=== PATIENT | female | born 1990 | race American Indian/Alaskan Native ===

== ENCOUNTER 2020-12-02 21:32 | Emergency (ER) | payer SELFPAY ==
[2020-12-02 21:52] VITALS: BP 114/57
[2020-12-02] MEDS ORDERED: oxyCODONE /ACETAMINOPHEN 5-325MG TAB PO ONE (22:17)
--- NOTE | 2020-12-02 22:24 | Emergency Department Report ---
ED ENT HPI - General Chief complaint: Dental/Oral Stated complaint: TOOTH ACHE Time Seen by Provider: 12/02/20 22:15 Source: patient Mode of arrival: Ambulatory Limitations: No Limitations - History of Present Illness MD complaint: tooth pain -: Gradual Location: tooth # 1 - Area pain severe erosion dental caries and adjacent gingival erythema Severity: moderate, severe Quality: dull Consistency: constant Improves with: none Worsens with: none Associated Symptoms: toothache - Related Data Previous Rx's Medication Instructions Recorded Last Taken Type Cyclobenzaprine [Flexeril] 10 mg PO TID PRN #15 tablet 10/11/15 Unknown Rx Naproxen [Naprosyn] 500 mg PO BID #20 tablet 10/11/15 Unknown Rx Acetaminophen/Codeine [Tylenol #3] 1 tab PO Q6H PRN #14 tab 04/13/16 Unknown Rx Ibuprofen [Motrin] 800 mg PO Q8HR PRN #20 tablet 04/13/16 Unknown Rx Amoxicillin [Amoxicillin TAB] 875 mg PO BID #20 tablet 12/02/20 Unknown Rx Chlorhexidine Mouthwash [Peridex] 15 ml MM BID #1 bottle 12/02/20 Unknown Rx Ketorolac [Toradol] 10 mg PO Q6H PRN #15 tablet 12/02/20 Unknown Rx Lidocaine Viscous 2% 5 ml MM Q3H PRN #120 udc 12/02/20 Unknown Rx Allergies Allergy/AdvReac Type Severity Reaction Status Date / Time No Known Allergies Allergy Verified 10/11/15 11:40 ED Dental HPI - General Chief complaint: Dental/Oral Stated complaint: TOOTH ACHE Time Seen by Provider: 12/02/20 22:15 Source: patient Mode of arrival: Ambulatory Limitations: No Limitations - Related Data Previous Rx's Medication Instructions Recorded Last Taken Type Cyclobenzaprine [Flexeril] 10 mg PO TID PRN #15 tablet 10/11/15 Unknown Rx Naproxen [Naprosyn] 500 mg PO BID #20 tablet 10/11/15 Unknown Rx Acetaminophen/Codeine [Tylenol #3] 1 tab PO Q6H PRN #14 tab 04/13/16 Unknown Rx Ibuprofen [Motrin] 800 mg PO Q8HR PRN #20 tablet 04/13/16 Unknown Rx Amoxicillin [Amoxicillin TAB] 875 mg PO BID #20 tablet 12/02/20 Unknown Rx Chlorhexidine Mouthwash [Peridex] 15 ml MM BID #1 bottle 12/02/20 Unknown Rx Ketorolac [Toradol] 10 mg PO Q6H PRN #15 tablet 12/02/20 Unknown Rx Lidocaine Viscous 2% 5 ml MM Q3H PRN #120 udc 12/02/20 Unknown Rx Allergies Allergy/AdvReac Type Severity Reaction Status Date / Time No Known Allergies Allergy Verified 10/11/15 11:40 ED Review of Systems ROS: Stated complaint: TOOTH ACHE Other details as noted in HPI Comment: All other systems reviewed and negative ED Past Medical Hx - Past Medical History Previous Medical History?: No - Surgical History Past Surgical History?: No - Social History Smoking Status: Never Smoker Substance Use Type: None - Medications Home Medications: Home Medications Medication Instructions Recorded Confirmed Last Taken Type Cyclobenzaprine [Flexeril] 10 mg PO TID PRN #15 tablet 10/11/15 Unknown Rx Naproxen [Naprosyn] 500 mg PO BID #20 tablet 10/11/15 Unknown Rx Acetaminophen/Codeine [Tylenol #3] 1 tab PO Q6H PRN #14 tab 04/13/16 Unknown Rx Ibuprofen [Motrin] 800 mg PO Q8HR PRN #20 tablet 04/13/16 Unknown Rx Amoxicillin [Amoxicillin TAB] 875 mg PO BID #20 tablet 12/02/20 Unknown Rx Chlorhexidine Mouthwash [Peridex] 15 ml MM BID #1 bottle 12/02/20 Unknown Rx Ketorolac [Toradol] 10 mg PO Q6H PRN #15 tablet 12/02/20 Unknown Rx Lidocaine Viscous 2% 5 ml MM Q3H PRN #120 udc 12/02/20 Unknown Rx ED Physical Exam - General Limitations: No Limitations General appearance: alert, in no apparent distress - Head Head exam: Present: atraumatic, normocephalic - Eye Eye exam: Present: normal appearance - ENT ENT exam: Present: normal orophraynx (Airway patent tongue uvula midline no exudate no erythema), mucous membranes moist, other (Painful swelling and erosion to the teeth #2019. Adjacent gingival erythema with some swelling) - Neck Neck exam: Present: normal inspection - Respiratory Respiratory exam: Present: normal lung sounds bilaterally. Absent: respiratory distress - Cardiovascular Cardiovascular Exam: Present: regular rate, normal rhythm. Absent: systolic murmur, diastolic murmur, rubs, gallop - GI/Abdominal GI/Abdominal exam: Present: soft, normal bowel sounds - Extremities Exam Extremities exam: Present: normal inspection, full ROM, normal capillary refill - Back Exam Back exam: Present: normal inspection. Absent: CVA tenderness (R), CVA ten derness (L) - Neurological Exam Neurological exam: Present: alert, oriented X3, CN II-XII intact, normal gait - Psychiatric Psychiatric exam: Present: normal affect, normal mood - Skin Skin exam: Present: warm, dry, intact, normal color. Absent: rash ED Course Vital Signs 12/02/20 21:51 Temperature 98.6 F Pulse Rate 81 Respiratory 18 Rate Blood Pressure 114/57 O2 Sat by Pulse 94 Oximetry Critical care attestation.: If time is entered above; I have spent that time in minutes in the direct care of this critically ill patient, excluding procedure time. ED Disposition Clinical Impression: Dentalgia Disposition: DC-01 TO HOME OR SELFCARE Is pt being admited?: No Does the pt Need Aspirin: No Condition: Stable Prescriptions: Amoxicillin [Amoxicillin TAB] 875 mg PO BID #20 tablet Lidocaine Viscous 2% 5 ml MM Q3H PRN #120 udc PRN Reason: Pain, Moderate (4-6) Chlorhexidine Mouthwash [Peridex] 15 ml MM BID #1 bottle Ketorolac [Toradol] 10 mg PO Q6H PRN #15 tablet PRN Reason: Pain Referrals: PRIMARY CARE,MD [Primary Care Provider] - 3-5 Days [facility] [Outside] - 3-5 Days
== END 2020-12-02 22:41 | disposition home or self-care (01) ==
LOC: ED 21:32
DX: K08.89 Other specified disorders of teeth and supporting structures (principal); Z79.899 Other long term (current) drug therapy
CPT/HCPCS: 99282

== ENCOUNTER 2021-02-07 23:41 | Emergency (ER) | payer SELFPAY ==
[2021-02-08 00:50] VITALS: BP 132/86
--- NOTE | 2021-02-08 01:02 | Emergency Department Report ---
ED General Adult HPI - General Chief complaint: Skin/Abscess/Foreign Body Stated complaint: OPEN UPPER LFT SIDE BOIL Source: patient Mode of arrival: Ambulatory Limitations: No Limitations - History of Present Illness Initial comments: Patient is a 30-year-old -Martiniquais female with no past medical history who presents to the ED with complaint of acute onset persistent painful left lateral breast abscess wound for the last 3 days with thick purulent discharge. Patient states that the pain is moderate but the area around the wound is quite itchy. Patient denies traumatic injury, fever, chills, nausea, vomiting, chest pain or shortness of breath and neck pain. MD Complaint: left lateral breast open abscess wound with discharge and pain -: Sudden, days(s) (3) Location: chest (Left lateral breast) Radiation: non-radiation Severity scale (0 -10): 3 Quality: aching, dull Consistency: constant Improves with: none Worsens with: none Associated Symptoms: denies other symptoms, rash (Painful left lateral breast open abscess wound with thick purulent discharge). denies: confusion, chest pain, cough, fever/chills, headaches, loss of appetite, malaise, nausea/vomiting, seizure, shortness of breath, syncope, weakness Treatments Prior to Arrival: none - Related Data Previous Rx's Medication Instructions Recorded Last Taken Type Cyclobenzaprine [Flexeril] 10 mg PO TID PRN #15 tablet 10/11/15 Unknown Rx Naproxen [Naprosyn] 500 mg PO BID #20 tablet 10/11/15 Unknown Rx Acetaminophen/Codeine [Tylenol #3] 1 tab PO Q6H PRN #14 tab 04/13/16 Unknown Rx Ibuprofen [Motrin] 800 mg PO Q8HR PRN #20 tablet 04/13/16 Unknown Rx Amoxicillin [Amoxicillin TAB] 875 mg PO BID #20 tablet 12/02/20 Unknown Rx Chlorhexidine Mouthwash [Peridex] 15 ml MM BID #1 bottle 12/02/20 Unknown Rx Ketorolac [Toradol] 10 mg PO Q6H PRN #15 tablet 12/02/20 Unknown Rx Lidocaine Viscous 2% 5 ml MM Q3H PRN #120 udc 12/02/20 Unknown Rx Clindamycin [Clindamycin CAP] 300 mg PO Q8H #30 cap 02/08/21 Unknown Rx Ibuprofen [Motrin] 800 mg PO Q8HR PRN #30 tablet 02/08/21 Unknown Rx Sulfamethoxazole/Trimethoprim 1 each PO Q12H #20 tablet 02/08/21 Unknown Rx [Bactrim DS TAB] Allergies Allergy/AdvReac Type Severity Reaction Status Date / Time No Known Allergies Allergy Verified 10/11/15 11:40 ED Review of Systems ROS: Stated complaint: OPEN UPPER LFT SIDE BOIL Other details as noted in HPI Constitutional: denies: chills, fever Eyes: denies: eye pain, eye discharge, vision change ENT: denies: ear pain, throat pain Respiratory: denies: cough, shortness of breath, wheezing Cardiovascular: denies: chest pain, palpitations Endocrine: no symptoms reported Gastrointestinal: denies: abdominal pain, nausea, diarrhea Genitourinary: denies: urgency, dysuria, discharge Musculoskeletal: denies: back pain, joint swelling, arthralgia Skin: rash (Palpable mild tenderness on left lateral breast area around an open ulcerated wound with moderate thick purulent discharge). denies: lesions, change in color, change in hair/nails Neurological: denies: headache, weakness, paresthesias Psychiatric: denies: anxiety, depression Hematological/Lymphatic: denies: easy bleeding, easy bruising ED Past Medical Hx - Social History Smoking Status: Never Smoker Substance Use Type: None - Medications Home Medications: Home Medications Medication Instructions Recorded Confirmed Last Taken Type Cyclobenzaprine [Flexeril] 10 mg PO TID PRN #15 tablet 10/11/15 Unknown Rx Naproxen [Naprosyn] 500 mg PO BID #20 tablet 10/11/15 Unknown Rx Acetaminophen/Codeine [Tylenol #3] 1 tab PO Q6H PRN #14 tab 04/13/16 Unknown Rx Ibuprofen [Motrin] 800 mg PO Q8HR PRN #20 tablet 04/13/16 Unknown Rx Amoxicillin [Amoxicillin TAB] 875 mg PO BID #20 tablet 12/02/20 Unknown Rx Chlorhexidine Mouthwash [Peridex] 15 ml MM BID #1 bottle 12/02/20 Unknown Rx Ketorolac [Toradol] 10 mg PO Q6H PRN #15 tablet 12/02/20 Unknown Rx Lidocaine Viscous 2% 5 ml MM Q3H PRN #120 udc 12/02/20 Unknown Rx Clindamycin [Clindamycin CAP] 300 mg PO Q8H #30 cap 02/08/21 Unknown Rx Ibuprofen [Motrin] 800 mg PO Q8HR PRN #30 tablet 02/08/21 Unknown Rx Sulfamethoxazole/Trimethoprim 1 each PO Q12H #20 tablet 02/08/21 Unknown Rx [Bactrim DS TAB] ED Physical Exam - General Limitations: No Limitations General appearance: alert, in no apparent distress - Head Head exam: Present: atraumatic, normocephalic, normal inspection - Eye Eye exam: Present: normal appearance, PERRL, EOMI Pupils: Present: normal accommodation - ENT ENT exam: Present: normal exam, normal orophraynx, mucous membranes moist, TM's normal bilaterally, normal external ear exam - Neck Neck exam: Present: normal inspection, full ROM - Respiratory Respiratory exam: Present: normal lung sounds bilaterally. Absent: respiratory distress, wheezes, rales, rhonchi, stridor, chest wall tenderness, accessory muscle use, decreased breath sounds - Cardiovascular Cardiovascular Exam: Present: regular rate, normal rhythm, normal heart sounds. Absent: systolic murmur, diastolic murmur, rubs, gallop - GI/Abdominal GI/Abdominal exam: Present: soft, normal bowel sounds. Absent: tenderness, guarding, rebound, hyperactive bowel sounds, hypoactive bowel sounds, organomegaly - Extremities Exam Extremities exam: Present: normal inspection, full ROM, normal capillary refill. Absent: tenderness, calf tenderness - Back Exam Back exam: Present: normal inspection, full ROM. Absent: tenderness, CVA tenderness (R), CVA tenderness (L), muscle spasm, paraspinal tenderness, vertebral tenderness - Neurological Exam Neurological exam: Present: alert, oriented X3, CN II-XII intact, normal gait, reflexes normal - Psychiatric Psychiatric exam: Present: normal affect, normal mood - Skin Skin exam: Present: warm, dry, intact, normal color, rash (Mildly ulcerated open abscess wound on left lateral breast wall with moderate thick purulent discharge) ED Course Vital Signs 02/08/21 00:47 Temperature 98.1 F Pulse Rate 82 Respiratory 16 Rate Blood Pressure 132/86 [Left] O2 Sat by Pulse 97 Oximetry ED Medical Decision Making - Medical Decision Making This is a 30-year-old -Martiniquais female with no past medical history who presents to the ED with complaint of acute onset persistent painful left lateral breast abscess wound for the last 3 days with thick purulent discharge. Patient states that the pain is moderate but the area around the wound is quite itchy. In the ED, patient is alert and oriented x3 and is not in any distress. The wound on the left lateral breast was cleaned aseptically and dressed appropriately. Patient was discharged home on medications including oral antibiotics and advised to follow-up with her primary care physician in 5 to 7 days for reevaluation. Patient was advised return to the ED immediately if symptoms get worse. - Differential Diagnosis Cutaneous abscess; cellulitis; folliculitis; Critical care attestation.: If time is entered above; I have spent that time in minutes in the direct care of this critically ill patient, excluding procedure time. ED Disposition Clinical Impression: Abscess of skin of breast, Cellulitis of left breast Disposition: HOME / SELF CARE / HOMELESS Is pt being admited?: No Does the pt Need Aspirin: No Condition: Stable Instructions: Cellulitis, Adult, [id number], Skin Abscess, [id number] Additional Instructions: Take medication with food, drink plenty of fluids and follow-up with your primary care physician in 5 to 7 days for reevaluation. Return to the ED immediately if symptoms get worse. No alcohol consumption advised when taking these antibiotics. Prescriptions: Sulfamethoxazole/Trimethoprim [Bactrim DS TAB] 1 each PO Q12H #20 tablet Clindamycin [Clindamycin CAP] 300 mg PO Q8H #30 cap Ibuprofen [Motrin] 800 mg PO Q8HR PRN #30 tablet PRN Reason: Pain , Severe (7-10) Referrals: [facility] [Provider Group] - 3-5 Days Time of Disposition: :03 Print Language: SWEDISH
== END 2021-02-08 02:02 | disposition home or self-care (01) ==
LOC: ED 23:41
DX: N61.1 Abscess of the breast and nipple (principal); N61.0 Mastitis without abscess
CPT/HCPCS: 99281; 99282

== ENCOUNTER 2021-07-26 14:09 | Emergency (ER) | payer SELFPAY ==
--- NOTE | 2021-07-26 15:33 | Emergency Department Report ---
ED ENT HPI - General Chief complaint: Dental/Oral Stated complaint: TOOTHACHE/FEVER SWOLLEN GUMS Source: patient Mode of arrival: Ambulatory Limitations: No Limitations - History of Present Illness Initial comments: 30-year-old female presents to the ED with tooth ache x2 days. Patient states that she do not have a dentist at present time. Patient states that she has multiple cavities. Patient states taking [id number] pain medication without any relief. patient denies any past medical history. Patient is alert and oriented x3. Patient denies any difficult swallowing, drooling, earache or headache. Denies any fever or chills. Denies any recent surgery. No acute distress noted. No ill appearance noted. No obvious swelling noted to the left jaw area. MD complaint: tooth pain Onset/Timin -: days(s) Severity scale (0 -10): 8 Quality: aching Consistency: constant Improves with: none Worsens with: none Context- Dental: history of dental caries, poor dental care - Related Data Previous Rx's Medication Instructions Recorded Last Taken Type Cyclobenzaprine [Flexeril] 10 mg PO TID PRN #15 tablet 10/11/15 Unknown Rx Naproxen [Naprosyn] 500 mg PO BID #20 tablet 10/11/15 Unknown Rx Acetaminophen/Codeine [Tylenol #3] 1 tab PO Q6H PRN #14 tab 04/13/16 Unknown Rx Ibuprofen [Motrin] 800 mg PO Q8HR PRN #20 tablet 04/13/16 Unknown Rx Amoxicillin [Amoxicillin TAB] 875 mg PO BID #20 tablet 12/02/20 Unknown Rx Chlorhexidine Mouthwash [Peridex] 15 ml MM BID #1 bottle 12/02/20 Unknown Rx Ketorolac [Toradol] 10 mg PO Q6H PRN #15 tablet 12/02/20 Unknown Rx Lidocaine Viscous 2% 5 ml MM Q3H PRN #120 udc 12/02/20 Unknown Rx Clindamycin [Clindamycin CAP] 300 mg PO Q8H #30 cap 02/08/21 Unknown Rx Ibuprofen [Motrin] 800 mg PO Q8HR PRN #30 tablet 02/08/21 Unknown Rx Sulfamethoxazole/Trimethoprim 1 each PO Q12H #20 tablet 02/08/21 Unknown Rx [Bactrim DS TAB] Acetaminophen/Codeine [Tylenol 1 tab PO Q6H PRN #12 tab 07/26/21 Unknown Rx /Codeine # 3 tab] Penicillin V Potassium 500 mg PO BID 10 Days #20 tab 07/26/21 Unknown Rx Allergies Allergy/AdvReac Type Severity Reaction Status Date / Time No Known Allergies Allergy Verified 10/11/15 11:40 ED Dental HPI - General Chief complaint: Dental/Oral Stated complaint: TOOTHACHE/FEVER SWOLLEN GUMS Source: patient Mode of arrival: Ambulatory Limitations: No Limitations - Related Data Previous Rx's Medication Instructions Recorded Last Taken Type Cyclobenzaprine [Flexeril] 10 mg PO TID PRN #15 tablet 10/11/15 Unknown Rx Naproxen [Naprosyn] 500 mg PO BID #20 tablet 10/11/15 Unknown Rx Acetaminophen/Codeine [Tylenol #3] 1 tab PO Q6H PRN #14 tab 04/13/16 Unknown Rx Ibuprofen [Motrin] 800 mg PO Q8HR PRN #20 tablet 04/13/16 Unknown Rx Amoxicillin [Amoxicillin TAB] 875 mg PO BID #20 tablet 12/02/20 Unknown Rx Chlorhexidine Mouthwash [Peridex] 15 ml MM BID #1 bottle 12/02/20 Unknown Rx Ketorolac [Toradol] 10 mg PO Q6H PRN #15 tablet 12/02/20 Unknown Rx Lidocaine Viscous 2% 5 ml MM Q3H PRN #120 udc 12/02/20 Unknown Rx Clindamycin [Clindamycin CAP] 300 mg PO Q8H #30 cap 02/08/21 Unknown Rx Ibuprofen [Motrin] 800 mg PO Q8HR PRN #30 tablet 02/08/21 Unknown Rx Sulfamethoxazole/Trimethoprim 1 each PO Q12H #20 tablet 02/08/21 Unknown Rx [Bactrim DS TAB] Acetaminophen/Codeine [Tylenol 1 tab PO Q6H PRN #12 tab 07/26/21 Unknown Rx /Codeine # 3 tab] Penicillin V Potassium 500 mg PO BID 10 Days #20 tab 07/26/21 Unknown Rx Allergies Allergy/AdvReac Type Severity Reaction Status Date / Time No Known Allergies Allergy Verified 10/11/15 11:40 ED Review of Systems ROS: Stated complaint: TOOTHACHE/FEVER SWOLLEN GUMS Other details as noted in HPI Constitutional: denies: chills, fever Eyes: denies: eye pain, eye discharge, vision change ENT: dental pain. denies: ear pain, throat pain Respiratory: denies: cough, shortness of breath, wheezing Cardiovascular: denies: chest pain, palpitations Endocrine: no symptoms reported Gastrointestinal: denies: abdominal pain, nausea, diarrhea Genitourinary: denies: urgency, dysuria, discharge Musculoskeletal: denies: back pain, joint swelling, arthralgia Skin: denies: rash, lesions Neurological: denies: headache, weakness, paresthesias Psychiatric: denies: anxiety, depression Hematological/Lymphatic: denies: easy bleeding, easy bruising ED Past Medical Hx - Social History Smoking Status: Never Smoker Substance Use Type: None - Medications Home Medications: Home Medications Medication Instructions Recorded Confirmed Last Taken Type Cyclobenzaprine [Flexeril] 10 mg PO TID PRN #15 tablet 10/11/15 Unknown Rx Naproxen [Naprosyn] 500 mg PO BID #20 tablet 10/11/15 Unknown Rx Acetaminophen/Codeine [Tylenol #3] 1 tab PO Q6H PRN #14 tab 04/13/16 Unknown Rx Ibuprofen [Motrin] 800 mg PO Q8HR PRN #20 tablet 04/13/16 Unknown Rx Amoxicillin [Amoxicillin TAB] 875 mg PO BID #20 tablet 12/02/20 Unknown Rx Chlorhexidine Mouthwash [Peridex] 15 ml MM BID #1 bottle 12/02/20 Unknown Rx Ketorolac [Toradol] 10 mg PO Q6H PRN #15 tablet 12/02/20 Unknown Rx Lidocaine Viscous 2% 5 ml MM Q3H PRN #120 udc 12/02/20 Unknown Rx Clindamycin [Clindamycin CAP] 300 mg PO Q8H #30 cap 02/08/21 Unknown Rx Ibuprofen [Motrin] 800 mg PO Q8HR PRN #30 tablet 02/08/21 Unknown Rx Sulfamethoxazole/Trimethoprim 1 each PO Q12H #20 tablet 02/08/21 Unknown Rx [Bactrim DS TAB] Acetaminophen/Codeine [Tylenol 1 tab PO Q6H PRN #12 tab 07/26/21 Unknown Rx /Codeine # 3 tab] Penicillin V Potassium 500 mg PO BID 10 Days #20 tab 07/26/21 Unknown Rx ED Physical Exam - General Limitations: No Limitations General appearance: alert, in no apparent distress - Head Head exam: Present: atraumatic, normocephalic - Eye Eye exam: Present: normal appearance - ENT ENT exam: Present: mucous membranes moist - Expanded ENT Exam Expanded Mouth exam: Absent: drooling, trismus, muffled voice Teeth exam: Present: dental caries, other (multiple missing teeth ) - Neck Neck exam: Present: normal inspection - Respiratory Respiratory exam: Present: normal lung sounds bilaterally. Absent: respiratory distress - Cardiovascular Cardiovascular Exam: Present: regular rate, normal rhythm. Absent: systolic murmur, diastolic murmur, rubs, gallop - GI/Abdominal GI/Abdominal exam: Present: soft, normal bowel sounds - Extremities Exam Extremities exam: Present: normal inspection - Back Exam Back exam: Present: normal inspection - Neurological Exam Neurological exam: Present: alert, oriented X3 - Psychiatric Psychiatric exam: Present: normal affect, normal mood - Skin Skin exam: Present: warm, dry, intact, normal color. Absent: rash ED Course Vital Signs 07/26/21 14:44 Temperature 98.3 F Pulse Rate 74 Respiratory 16 Rate Blood Pressure 145/101 O2 Sat by Pulse 99 Oximetry ED Medical Decision Making - Medical Decision Making 30-year-old female presents to the ED with tooth ache x2 days. Patient states that she do not have a dentist at present time. Patient states that she has multiple cavities. Patient states taking [id number] pain medication without any relief. patient denies any past medical history. Patient is alert and oriented x3. Patient denies any difficult swallowing, drooling, earache or headache. Denies any fever or chills. Denies any recent surgery. No acute distress noted. No ill appearance noted. No obvious swelling noted to the left jaw area. Physical examination show multiple dental caries with mild edema noted to tooth #1, multiple missing teeth. Patient to follow-up with dentist. Discussed patient plan about blood pressure pressure reading and to follow-up with primary care doctor. Rechecked the patient is resting quietly quietly and comfortable and feeling better. I discussed the results of diagnostic study, my clinical impression and the plan for further treatment with the patient. Patient agrees with plan and discharge at this present time. All question addressed. I have given the patient instruction regarding a diagnosis ,expectation ,follow- up and return precaution. I explained to the patient that emergent condition may arise and to return to the ED for new worsen and any new persisting condition. I have explained the importance of following up with the primary care physician or referral physician listed below has instructed. The patient verbalized understanding of discharge instruction. Critical care attestation.: If time is entered above; I have spent that time in minutes in the direct care of this critically ill patient, excluding procedure time. ED Disposition Clinical Impression: Pain due to dental caries Disposition: HOME / SELF CARE / HOMELESS Is pt being admited?: No Does the pt Need Aspirin: No Condition: Stable Instructions: Preventive Dental Care, Adult, Dental Abscess, [id number], Hypertension, Adult, [id number] Additional Instructions: Return the ED for any worsening symptom Take medication as prescribed Prescriptions: Penicillin V Potassium 500 mg PO BID 10 Days #20 tab Acetaminophen/Codeine [Tylenol /Codeine # 3 tab] 1 tab PO Q6H PRN #12 tab PRN Reason: Pain, Moderate (4-6) Referrals: [facility] [Outside] - 3-5 Days Forms: Work/School Release Form(ED)
[2021-07-26 16:06] VITALS: BP 150/96
== END 2021-07-26 16:04 | disposition home or self-care (01) ==
LOC: ED 14:09
DX: K02.9 Dental caries, unspecified (principal)
CPT/HCPCS: 99282

== ENCOUNTER 2021-09-22 13:01 | Emergency (ER) | payer SELFPAY ==
[2021-09-22] MEDS ORDERED: KETOROLAC 10 MG TAB PO ONE (15:31)
[2021-09-22] MEDS ORDERED: DOXYCYCLINE 100 MG CAP PO ONE (15:31)
[2021-09-22] MEDS ORDERED: oxyCODONE /ACETAMINOPHEN 5-325MG TAB PO ONE (15:31)
--- NOTE | 2021-09-22 15:38 | Emergency Department Report ---
- General Chief complaint: Skin/Abscess/Foreign Body Stated complaint: BOIL UNDER BREAST Time Seen by Provider: 09/22/21 15:26 Source: patient Mode of arrival: Ambulatory Limitations: No Limitations - History of Present Illness Initial comments: 30-year-old black female with no past medical history presents to the emergency department for evaluation of 2-day history of worsening abscess under her right breast. She states that she gets abscesses often. She denies fever and has not noted any drainage from area. MD complaint: abscess/boil -: Gradual, days(s) (2) Tetanus Up to Date: yes Location: chest (Under right breast) Severity: severe Severity scale (0 -10): 10 Quality: aching Consistency: constant Worsens with: palpation, movement Associated symptoms: denies other symptoms Treatments Prior to Arrival: none - Related Data Previous Rx's Medication Instructions Recorded Last Taken Type Cyclobenzaprine [Flexeril] 10 mg PO TID PRN #15 tablet 10/11/15 Unknown Rx Naproxen [Naprosyn] 500 mg PO BID #20 tablet 10/11/15 Unknown Rx Acetaminophen/Codeine [Tylenol #3] 1 tab PO Q6H PRN #14 tab 04/13/16 Unknown Rx Ibuprofen [Motrin] 800 mg PO Q8HR PRN #20 tablet 04/13/16 Unknown Rx Amoxicillin [Amoxicillin TAB] 875 mg PO BID #20 tablet 12/02/20 Unknown Rx Chlorhexidine Mouthwash [Peridex] 15 ml MM BID #1 bottle 12/02/20 Unknown Rx Ketorolac [Toradol] 10 mg PO Q6H PRN #15 tablet 12/02/20 Unknown Rx Lidocaine Viscous 2% 5 ml MM Q3H PRN #120 udc 12/02/20 Unknown Rx Clindamycin [Clindamycin CAP] 300 mg PO Q8H #30 cap 02/08/21 Unknown Rx Ibuprofen [Motrin] 800 mg PO Q8HR PRN #30 tablet 02/08/21 Unknown Rx Sulfamethoxazole/Trimethoprim 1 each PO Q12H #20 tablet 02/08/21 Unknown Rx [Bactrim DS TAB] Acetaminophen/Codeine [Tylenol 1 tab PO Q6H PRN #12 tab 07/26/21 Unknown Rx /Codeine # 3 tab] Penicillin V Potassium 500 mg PO BID 10 Days #20 tab 07/26/21 Unknown Rx Acetaminophen/Codeine [Tylenol 1 tab PO Q6H PRN #12 tab 09/22/21 Unknown Rx /Codeine # 3 tab] DOXYCYCLINE Hyclate [Vibramycin] 100 mg PO Q12HR #20 capsule 09/22/21 Unknown Rx Naproxen [Naprosyn] 500 mg PO BID #14 tab 09/22/21 Unknown Rx Allergies Allergy/AdvReac Type Severity Reaction Status Date / Time No Known Allergies Allergy Verified 10/11/15 11:40 Abscess Boil HPI - HPI Chief Complaint: Skin/Abscess/Foreign Body Stated Complaint: BOIL UNDER BREAST Time Seen by Provider: 09/22/21 15:26 Home Medications: Previous Rx's Medication Instructions Recorded Last Taken Type Cyclobenzaprine [Flexeril] 10 mg PO TID PRN #15 tablet 10/11/15 Unknown Rx Naproxen [Naprosyn] 500 mg PO BID #20 tablet 10/11/15 Unknown Rx Acetaminophen/Codeine [Tylenol #3] 1 tab PO Q6H PRN #14 tab 04/13/16 Unknown Rx Ibuprofen [Motrin] 800 mg PO Q8HR PRN #20 tablet 04/13/16 Unknown Rx Amoxicillin [Amoxicillin TAB] 875 mg PO BID #20 tablet 12/02/20 Unknown Rx Chlorhexidine Mouthwash [Peridex] 15 ml MM BID #1 bottle 12/02/20 Unknown Rx Ketorolac [Toradol] 10 mg PO Q6H PRN #15 tablet 12/02/20 Unknown Rx Lidocaine Viscous 2% 5 ml MM Q3H PRN #120 udc 12/02/20 Unknown Rx Clindamycin [Clindamycin CAP] 300 mg PO Q8H #30 cap 02/08/21 Unknown Rx Ibuprofen [Motrin] 800 mg PO Q8HR PRN #30 tablet 02/08/21 Unknown Rx Sulfamethoxazole/Trimethoprim 1 each PO Q12H #20 tablet 02/08/21 Unknown Rx [Bactrim DS TAB] Acetaminophen/Codeine [Tylenol 1 tab PO Q6H PRN #12 tab 07/26/21 Unknown Rx /Codeine # 3 tab] Penicillin V Potassium 500 mg PO BID 10 Days #20 tab 07/26/21 Unknown Rx Acetaminophen/Codeine [Tylenol 1 tab PO Q6H PRN #12 tab 09/22/21 Unknown Rx /Codeine # 3 tab] DOXYCYCLINE Hyclate [Vibramycin] 100 mg PO Q12HR #20 capsule 09/22/21 Unknown Rx Naproxen [Naprosyn] 500 mg PO BID #14 tab 09/22/21 Unknown Rx Allergies/Adverse Reactions: Allergies Allergy/AdvReac Type Severity Reaction Status Date / Time No Known Allergies Allergy Verified 10/11/15 11:40 ED Review of Systems ROS: Stated complaint: BOIL UNDER BREAST Other details as noted in HPI Comment: All other systems reviewed and negative Constitutional: denies: chills, fever Eyes: denies: eye pain, eye discharge, vision change ENT: denies: congestion Respiratory: denies: cough, shortness of breath, SOB with exertion, SOB at rest Cardiovascular: denies: chest pain, palpitations, dyspnea on exertion, orthopnea, edema, syncope, paroxysmal nocturnal dyspnea Gastrointestinal: denies: abdominal pain, nausea, vomiting Genitourinary: denies: urgency, dysuria, frequency, hematuria, discharge Musculoskeletal: denies: back pain Skin: denies: rash, lesions Neurological: denies: headache, weakness ED Past Medical Hx - Social History Smoking Status: Never Smoker Substance Use Type: None - Medications Home Medications: Home Medications Medication Instructions Recorded Confirmed Last Taken Type Cyclobenzaprine [Flexeril] 10 mg PO TID PRN #15 tablet 10/11/15 Unknown Rx Naproxen [Naprosyn] 500 mg PO BID #20 tablet 10/11/15 Unknown Rx Acetaminophen/Codeine [Tylenol #3] 1 tab PO Q6H PRN #14 tab 04/13/16 Unknown Rx Ibuprofen [Motrin] 800 mg PO Q8HR PRN #20 tablet 04/13/16 Unknown Rx Amoxicillin [Amoxicillin TAB] 875 mg PO BID #20 tablet 12/02/20 Unknown Rx Chlorhexidine Mouthwash [Peridex] 15 ml MM BID #1 bottle 12/02/20 Unknown Rx Ketorolac [Toradol] 10 mg PO Q6H PRN #15 tablet 12/02/20 Unknown Rx Lidocaine Viscous 2% 5 ml MM Q3H PRN #120 udc 12/02/20 Unknown Rx Clindamycin [Clindamycin CAP] 300 mg PO Q8H #30 cap 02/08/21 Unknown Rx Ibuprofen [Motrin] 800 mg PO Q8HR PRN #30 tablet 02/08/21 Unknown Rx Sulfamethoxazole/Trimethoprim 1 each PO Q12H #20 tablet 02/08/21 Unknown Rx [Bactrim DS TAB] Acetaminophen/Codeine [Tylenol 1 tab PO Q6H PRN #12 tab 07/26/21 Unknown Rx /Codeine # 3 tab] Penicillin V Potassium 500 mg PO BID 10 Days #20 tab 07/26/21 Unknown Rx Acetaminophen/Codeine [Tylenol 1 tab PO Q6H PRN #12 tab 09/22/21 Unknown Rx /Codeine # 3 tab] DOXYCYCLINE Hyclate [Vibramycin] 100 mg PO Q12HR #20 capsule 09/22/21 Unknown Rx Naproxen [Naprosyn] 500 mg PO BID #14 tab 09/22/21 Unknown Rx ED Physical Exam - General Limitations: No Limitations General appearance: alert, in no apparent distress - Head Head exam: Present: atraumatic, normocephalic - Eye Eye exam: Present: normal appearance. Absent: conjunctival injection - Neck Neck exam: Present: normal inspection, full ROM. Absent: lymphadenopathy - Respiratory Respiratory exam: Present: normal lung sounds bilaterally. Absent: respiratory distress, wheezes, rales, rhonchi, stridor, chest wall tenderness - Cardiovascular Cardiovascular Exam: Present: regular rate - Expanded Cardiovascular Exam Expanded 1 - Abscessed area 4 to 5 cm long 2 cm wide noted to be erythematous, edematou s, and tender to any touch. No drainage noted. - GI/Abdominal GI/Abdominal exam: Present: soft, normal bowel sounds. Absent: distended, tenderness, rebound, rigid - Extremities Exam Extremities exam: Present: normal inspection - Back Exam Back exam: Present: normal inspection. Absent: CVA tenderness (R), CVA tenderness (L) - Neurological Exam Neurological exam: Present: alert, oriented X3, normal gait - Psychiatric Psychiatric exam: Present: normal affect, normal mood - Skin Skin exam: Present: warm, dry, intact, normal color ED Course Vital Signs 09/22/21 09/22/21 09/22/21 13:27 15:53 15:55 Temperature 98.4 F Pulse Rate 88 Respiratory 18 14 14 Rate Blood Pressure 148/93 [Left] O2 Sat by Pulse 98 Oximetry ED Medical Decision Making - Medical Decision Making 30-year-old black female with no past medical history presents to the emergency department for evaluation of 2-day history of worsening abscess under her right breast. She states that she gets abscesses often. She denies fever and has not noted any drainage from area. Abscessed area noted under right breast, no drainage noted. Area not fluctuant and scan reasonable scan of hidradenitis superlative, so no incision and drainage required. Patient will be treated with 10-day course of doxycycline 100 mg twice a day and advised to follow-up with dermatology for further evaluation and manage treatment. She was advised to follow-up in the emergency department for any concerning symptoms. She verbalized understanding of and agreement with plan of care. Critical care attestation.: If time is entered above; I have spent that time in minutes in the direct care of this critically ill patient, excluding procedure time. ED Disposition Clinical Impression: Abscess of right breast Disposition: 01 HOME / SELF CARE / HOMELESS Is pt being admited?: No Does the pt Need Aspirin: No Condition: Stable Instructions: Skin Abscess, [id number] Additional Instructions: Take medications as prescribed. Follow-up with dermatology for further evaluation and management. Return to the ER as needed. Prescriptions: Naproxen [Naprosyn] 500 mg PO BID #14 tab Acetaminophen/Codeine [Tylenol /Codeine # 3 tab] 1 tab PO Q6H PRN #12 tab PRN Reason: Pain , Severe (7-10) DOXYCYCLINE Hyclate [Vibramycin] 100 mg PO Q12HR #20 capsule Referrals: SIMA LEO MD [Referring] - 3-5 Days Forms: Work/School Release Form(ED) Time of Disposition: 15:38
[2021-09-22 17:01] VITALS: BP 130/92
== END 2021-09-22 17:39 | disposition home or self-care (01) ==
LOC: ED 13:01
DX: N61.1 Abscess of the breast and nipple (principal); Z79.899 Other long term (current) drug therapy
CPT/HCPCS: 99282